=== PATIENT | male | born 1990 | race African-American/Black ===

== ENCOUNTER 2021-07-12 21:05 | Emergency (ER) | payer OTHER ==
[~2021-07-12] VITALS: Ht 182.9 cm; Wt 84.1 kg
[2021-07-12] MEDS ORDERED: IBUPROFEN 800 MG TABLET PO ONE (23:00)
[2021-07-13 00:09] VITALS: BP 126/82
== END 2021-07-13 00:09 | disposition home or self-care (01) ==
LOC: EMS 21:05
DX: M25.561 Pain in right knee (principal); F17.210 Nicotine dependence, cigarettes, uncomplicated
CPT/HCPCS: 99283